=== PATIENT | male | born 1975 | race Caucasian/White ===

== ENCOUNTER 2018-05-29 12:00 | Emergency (ER) | payer SELFPAY ==
[~2018-05-29] VITALS: Ht 172.7 cm; Wt 104.5 kg
[~2018-05-29 12:00] MED LIST: RANI150T7 PO
[2018-05-29 13:57] VITALS: BP 123/89
[2018-05-30] MEDS ORDERED: LIB25 PO (03:03)
== END 2018-05-29 14:05 | disposition home or self-care (01) ==
LOC: EMS 12:01
DX: F10.20 Alcohol dependence, uncomplicated (principal); F41.9 Anxiety disorder, unspecified; K21.9 Gastro-esophageal reflux disease without esophagitis; F11.90 Opioid use, unspecified, uncomplicated; Y90.9 Presence of alcohol in blood, level not specified

== ENCOUNTER 2018-05-30 02:59 | Emergency (ER) | payer SELFPAY ==
[~2018-05-30] VITALS: Ht 172.7 cm; Wt 100.0 kg
[2018-05-30] MEDS ORDERED: LIB25 PO (03:03)
[2018-05-30] MEDS ORDERED: ONDANSETRON HCL 4 MG/2 ML VIAL IVP ONE (06:30)
[2018-05-30] MEDS ORDERED: MAGNESIUM SULFATE 2 GM, MVI, ADULT NO.1 WITH VIT K 10 ML, THIAMINE HCL 100 MG, FOLIC AC... IV ONE ×5 (06:30)
[2018-05-30] MEDS ORDERED: LORazepam 2 MG/ML VIAL IVP ONE (06:30)
[2018-05-30 07:47] LABS: BASOPHILS % (AUTO) 0.6 % (0.0-2.0); EOSINOPHILS % (AUTO) 0 % (1.0-6.0); HEMATOCRIT 40.2 % (41-53); HEMOGLOBIN 13.2 g/dL (13.5-17.5); LYMPHOCYTES # (AUTO) 0.9 K/uL (1.0-4.8); LYMPHOCYTES % (AUTO) 8.3 % (22.0-44.0); MEAN CORPUSCULAR HGB CONC 32.9 G/dL (31.0-37.0); MEAN CORPUSCULAR VOLUME 88 fL (80-100); MONOCYTES # (AUTO) 0.6 K/uL (0.1-1.0); MONOCYTES % (AUTO) 5.7 % (2.0-9.0); NEUTROPHILS # (AUTO) 9.1 K/uL (1.8-7.7); PLATELET COUNT (AUTO) 265 K/uL (150-450); RED BLOOD CELL COUNT(AUTO) 4.57 MIL/uL (4.50-5.90); RED CELL DISTRIBUTION WIDTH 14.9 % (11.5-14.5)
[2018-05-30 07:48] LABS: NEUTROPHILS % (AUTO) 85.4 % (40.0-70.0)
[2018-05-30 07:57] LABS: ANION GAP 12 mmol/L (8-16); CALCIUM, TOTAL 9.5 mg/dL (8.8-10.5); CARBON DIOXIDE 27 mmol/L (22-29); CHLORIDE 99 mmol/L (98-107); CREATININE 0.57 mg/dL (0.60-1.30); GLOMERULAR FILTR. RATE CALC > 60 mL/min (>60); GLUCOSE,RANDOM 108 mg/dL (70-110); POTASSIUM 3.9 mmol/L (3.5-5.1); SODIUM SERUM 138 mmol/L (136-145); UREA NITROGEN, BLOOD 10 mg/dL (7-18)
[2018-05-30 08:03] LABS: ALANINE AMINOTRANSFERASE 86 U/L (12-78); ALKALINE PHOSPHATASE 116 U/L (46-116); ASPARTATE AMINOTRANSFERASE 143 U/L (15-37); BILIRUBIN,TOTAL 0.7 mg/dL (0.1-1.0)
[2018-05-30 10:06] VITALS: BP 163/90
== END 2018-05-30 10:10 | disposition home or self-care (01) ==
LOC: EMS 02:59
DX: F41.9 Anxiety disorder, unspecified (principal); F11.10 Opioid abuse, uncomplicated; F10.20 Alcohol dependence, uncomplicated; K21.9 Gastro-esophageal reflux disease without esophagitis; Y90.0 Blood alcohol level of less than 20 mg/100 ml
CPT/HCPCS: 36415; 80053; 85025; 96365; 96366; 96375; 99284; G0480; J2060; J2405; J3411; J3475; J3490 ×2; J7030

== ENCOUNTER 2018-06-01 15:33 | Emergency (ER) | payer SELFPAY ==
[~2018-06-01] VITALS: Ht 172.7 cm; Wt 94.5 kg
[~2018-06-01 15:33] MED LIST changes: +LIB25 PO; -RANI150T7 PO
[2018-06-01 17:56] VITALS: BP 129/72
[2018-06-01] MEDS ORDERED: KETOROLAC TROMETHAMINE 60 MG/2 ML VIAL IM ONE (18:30)
[2018-06-01] MEDS ORDERED: CYCLOBENZAPRINE HCL 10 MG TABLET PO ONE (18:30)
== END 2018-06-01 19:36 | disposition home or self-care (01) ==
LOC: EMS 15:33
DX: G89.29 Other chronic pain (principal); M54.5 Low back pain; R21 Rash and other nonspecific skin eruption; F41.9 Anxiety disorder, unspecified; K21.9 Gastro-esophageal reflux disease without esophagitis; F11.90 Opioid use, unspecified, uncomplicated
CPT/HCPCS: 96372; 99283; J1885